=== PATIENT | male | born 1930 | race Hispanic/Latino ===

== ENCOUNTER 2017-05-06 13:11 | Emergency (ER) | payer MEDICARE, OTHER ==
[2017-05-06 13:58] LABS: Basophils % (Auto) 1.4 % (0.0-1.8); Eosinophils % (Auto) 0.5 % (0.0-4.3); Hemoglobin 14.2 gm/dl (11.8-15.2); Mean Corpuscular HGB Conc 33 % (32-34); Mean Corpuscular Hemoglobin 32 pg (28-32); Mean Corpuscular Volume 98 fl (84-94); Platelet Count 249 K/mm3 (140-440); Red Blood Count 4.39 M/mm3 (3.65-5.03); White Blood Count 7.6 K/mm3 (4.5-11.0)
[2017-05-06 14:02] LABS: Anion Gap 21 mmol/L; Blood Urea Nitrogen 18 mg/dL (9-20); Calcium 9.4 mg/dL (8.4-10.2); Carbon Dioxide 18 mmol/L (22-30); Chloride 100.7 mmol/L (98-107); Potassium 4.6 mmol/L (3.6-5.0); Sodium 135 mmol/L (137-145)
[2017-05-06 14:34] LABS: Glucose 96 mg/dL (75-100)
[2017-05-06 15:33] LABS: Albumin 3.8 g/dL (3.9-5); Albumin/Globulin Ratio 1.1 %; Bilirubin,Direct 0.2 mg/dL (0-0.2); Bilirubin,Total 1.2 mg/dL (0.1-1.2); Total Protein 7.2 g/dL (6.3-8.2)
[2017-05-06] MEDS ORDERED: ZOFRAN IV ONE (22:51)
--- NOTE | 2017-05-06 22:55 | Emergency Department Report ---
ED N/V/D HPI - General Chief complaint: Nausea/Vomiting/Diarrhea Stated complaint: VOMITTING/ABD PAIN Time Seen by Provider: 05/06/17 22:41 Source: family Mode of arrival: Ambulatory Limitations: No Limitations - History of Present Illness Initial comments: 86-year-old male with past medical history hypertension, previous cholecystectomy, and kidney stones presents to the hospital complains of persistent nausea for 24 hours. Patient has had nausea times one month and also has experienced similar symptoms over the past year. Last year patient had a breathalyzer ulcer test and other workup that was unremarkable. Patient has not had anything to eat since yesterday morning to nausea. One episode of vomiting in the waiting room while waiting to be evaluated. Last bowel movement was 2 days ago. Patient varies between constipation and diarrhea chronically. No reports of fever here patient denies headache, chest pain, or abdominal pain. - Related Data Home Medications Medication Instructions Recorded Confirmed Last Taken Aspirin [Aspirin BABY CHEW TAB] 81 mg PO QDAY 02/21/16 05/06/17 05/05/17 LORazepam [Ativan] 2 mg PO QHS 02/21/16 05/06/17 05/06/17 Lisinopril [Zestril TAB] 40 mg PO QDAY 02/21/16 05/06/17 05/05/17 Metoprolol [Lopressor] 25 mg PO QDAY 02/21/16 05/06/17 05/05/17 Potassium Chloride [K-Dur] 10 meq PO QDAY 02/21/16 05/06/17 05/05/17 traMADol [Ultram] 50 mg PO Q6HR PRN 02/21/16 05/06/17 05/06/17 Previous Rx's Medication Instructions Recorded Last Taken Type Ondansetron [Zofran Odt] 4 mg PO Q8HR PRN #20 tab.rapdis 05/07/17 Unknown Rx Allergies Allergy/AdvReac Type Severity Reaction Status Date / Time meperidine HCl [From Demerol] Allergy Unknown Verified 02/21/16 11:29 Sulfa (Sulfonamide AdvReac Nausea Verified 02/21/16 11:29 Antibiotics) DEMER AdvReac Severe Unknown Uncoded 09/21/15 12:47 DEMEROL AdvReac Unknown Uncoded 09/21/15 12:47 ED Review of Systems ROS: Stated complaint: VOMITTING/ABD PAIN Other details as noted in HPI Comment: All other systems reviewed and negative Other: Constitutional: No fevers chills. +10 pound weight loss over 6 months. Eyes: No eye pain visual changes ENT: No ear pain or throat pain Neck: Denies pain Respiratory: Denies cough wheezing shortness of breath Cardiovascular: Denies chest pain, palpitations, syncope GI: Denies abdominal pain : Denies dysuria Musculoskeletal: Chronic intermittent left shoulder pain Skin: Denies rash, lesions, erythema Neurologic: Denies headache, numbness, weakness Psychiatric: Denies suicidal ideation, hallucinations ED Past Medical Hx - Past Medical History Hx Hypertension: Yes Hx Kidney Stones: Yes - Surgical History Hx Cholecystectomy: Yes Additional Surgical History: KIDNEY STONE SURGERY - Social History Smoking Status: Never Smoker Substance Use Type: None - Medications Home Medications: Home Medications Medication Instructions Recorded Confirmed Last Taken Type Aspirin [Aspirin BABY CHEW TAB] 81 mg PO QDAY 02/21/16 05/06/17 05/05/17 History LORazepam [Ativan] 2 mg PO QHS 02/21/16 05/06/17 05/06/17 History Lisinopril [Zestril TAB] 40 mg PO QDAY 02/21/16 05/06/17 05/05/17 History Metoprolol [Lopressor] 25 mg PO QDAY 02/21/16 05/06/17 05/05/17 History Potassium Chloride [K-Dur] 10 meq PO QDAY 02/21/16 05/06/17 05/05/17 History traMADol [Ultram] 50 mg PO Q6HR PRN 02/21/16 05/06/17 05/06/17 History Ondansetron [Zofran Odt] 4 mg PO Q8HR PRN #20 tab.rapdis 05/07/17 Unknown Rx ED Physical Exam - General Limitations: No Limitations - Other Other exam information: General: No limitations, patient is alert in no acute distress Head exam: Atraumatic, normocephalic Eyes exam: Normal appearance ENT: Moist mucous membrane Neck exam: Normal inspection, full range of motion Respiratory exam: Clear to auscultation bilateral, no wheezes, rales, crackles Cardiovascular: Normal rate and rhythm, normal heart sounds Abdomen: Soft, nondistended, and nontender, with normal bowel sounds, no rebound, or guarding Extremity: Full range of motion normal inspection no deformity, no left shoulder tenderness at this time, full range of motion Back: Normal Inspection, full range of motion, no tenderness Neurologic: Alert, cranial nerves intact, no motor or sensory deficit Psychiatric: normal affect, normal mood Skin: Warm, dry, intact ED Course Vital Signs 05/06/17 05/06/17 13:17 22:38 Temperature 97.7 F 97.7 F Pulse Rate 74 81 Respiratory 20 22 Rate Blood Pressure 140/82 Blood Pressure 149/86 [Right] O2 Sat by Pulse 100 100 Oximetry - Reevaluation(s) Reevaluation #1: 05/07/17 04:26 Patient treated with Zofran and and IV fluids initiated. After CT results did not show any acute abnormality was offered food in the ED but states he rather eat at home. Patient remains pain-free and no vomiting ED Medical Decision Making - Lab Data Result diagrams: 05/06/17 13:34 05/06/17 13:27 Lab Results 05/06/17 05/06/17 05/06/17 Range/Units 13:27 13:27 13:34 WBC 7.6 (4.5-11.0) K/mm3 RBC 4.39 (3.65-5.03) M/mm3 Hgb 14.2 (11.8-15.2) gm/dl Hct 43.0 (35.5-45.6) % MCV 98 H (84-94) fl MCH 32 (28-32) pg MCHC 33 (32-34) % RDW 13.0 L (13.2-15.2) % Plt Count 249 (140-440) K/mm3 Lymph % (Auto) 21.3 (13.4-35.0) % [place] % (Auto) 9.3 H (0.0-7.3) % Eos % (Auto) 0.5 (0.0-4.3) % Baso % (Auto) 1.4 (0.0-1.8) % Lymph # 1.6 (1.2-5.4) K/mm3 [place] # 0.7 (0.0-0.8) K/mm3 Eos # 0.0 (0.0-0.4) K/mm3 Baso # 0.1 (0.0-0.1) K/mm3 Seg Neutrophils % 67.5 (40.0-70.0) % Seg Neutrophils # 5.2 (1.8-7.7) K/mm3 Sodium 135 L (137-145) mmol/L Potassium 4.6 (3.6-5.0) mmol/L Chloride 100.7 (98-107) mmol/L Carbon Dioxide 18 L (22-30) mmol/L Anion Gap 21 mmol/L BUN 18 (9-20) mg/dL Creatinine 0.8 (0.8-1.5) mg/dL Estimated GFR > 60 ml/min BUN/Creatinine Ratio 22.50 % Glucose 96 (75-100) mg/dL Calcium 9.4 (8.4-10.2) mg/dL Total Bilirubin 1.20 (0.1-1.2) mg/dL Direct Bilirubin 0.2 (0-0.2) mg/dL Indirect Bilirubin 1.0 mg/dL AST 28 (5-40) units/L ALT 13 (7-56) units/L Alkaline Phosphatase 82 (35-129) units/L Total Protein 7.2 (6.3-8.2) g/dL Albumin 3.8 L (3.9-5) g/dL Albumin/Globulin Ratio 1.1 % Lipase 46 (13-60) units/L Urine Color (Yellow) Urine Turbidity (Clear) Urine pH (5.0-7.0) Ur Specific [place] (1.003-1.030) Urine Protein (Negative) mg/dL Urine Glucose (UA) (Negative) mg/dL Urine Ketones (Negative) mg/dL Urine Blood (Negative) Urine Nitrite (Negative) Urine Bilirubin (Negative) Urine Urobilinogen (<2.0) mg/dL Ur Leukocyte Esterase (Negative) Urine WBC (Auto) (0.0-6.0) /HPF Urine RBC (Auto) (0.0-6.0) /HPF U Epithel Cells (Auto) (0-13.0) /HPF Urine Mucus /HPF 05/06/17 Range/Units 23:10 WBC (4.5-11.0) K/mm3 RBC (3.65-5.03) M/mm3 Hgb (11.8-15.2) gm/dl Hct (35.5-45.6) % MCV (84-94) fl MCH (28-32) pg MCHC (32-34) % RDW (13.2-15.2) % Plt Count (140-440) K/mm3 Lymph % (Auto) (13.4-35.0) % [place] % (Auto) (0.0-7.3) % Eos % (Auto) (0.0-4.3) % Baso % (Auto) (0.0-1.8) % Lymph # (1.2-5.4) K/mm3 [place] # (0.0-0.8) K/mm3 Eos # (0.0-0.4) K/mm3 Baso # (0.0-0.1) K/mm3 Seg Neutrophils % (40.0-70.0) % Seg Neutrophils # (1.8-7.7) K/mm3 Sodium (137-145) mmol/L Potassium (3.6-5.0) mmol/L Chloride (98-107) mmol/L Carbon Dioxide (22-30) mmol/L Anion Gap mmol/L BUN (9-20) mg/dL Creatinine (0.8-1.5) mg/dL Estimated GFR ml/min BUN/Creatinine Ratio % Glucose (75-100) mg/dL Calcium (8.4-10.2) mg/dL Total Bilirubin (0.1-1.2) mg/dL Direct Bilirubin (0-0.2) mg/dL Indirect Bilirubin mg/dL AST (5-40) units/L ALT (7-56) units/L Alkaline Phosphatase (35-129) units/L Total Protein (6.3-8.2) g/dL Albumin (3.9-5) g/dL Albumin/Globulin Ratio % Lipase (13-60) units/L Urine Color Yellow (Yellow) Urine Turbidity Clear (Clear) Urine pH 5.0 (5.0-7.0) Ur Specific [place] 1.019 (1.003-1.030) Urine Protein 100 mg/dl (Negative) mg/dL Urine Glucose (UA) Neg (Negative) mg/dL Urine Ketones Tr (Negative) mg/dL Urine Blood Mod (Negative) Urine Nitrite Neg (Negative) Urine Bilirubin Neg (Negative) Urine Urobilinogen < 2.0 (<2.0) mg/dL Ur Leukocyte Esterase Neg (Negative) Urine WBC (Auto) 1.0 (0.0-6.0) /HPF Urine RBC (Auto) 4.0 (0.0-6.0) /HPF U Epithel Cells (Auto) < 1.0 (0-13.0) /HPF Urine Mucus 1+ /HPF - Radiology Data Radiology results: report reviewed TM and pelvis with IV contrast: No acute abnormality. Diverticulosis no inflammation. 6 mm nonobstructive right renal calculus. Stable mild atrophy of the kidneys and multiple renal cysts. No hydronephrosis - Medical Decision Making Patient in no acute findings on lab, urine, or CT. Symptoms appear to be chronic and intermittent. Daughter also states the patient stopped drinking ensure several months ago because he got tired of it and thought it was making him urinate too much. Patient be discharged on Zofran for nausea and encouraged to follow up with primary care doctor. I also encouraged to supplement diet with boost or ensure and continue by mouth hydration - Differential Diagnosis dehydration, decreased appetite, infection Critical Care Time: No Critical care attestation.: If time is entered above; I have spent that time in minutes in the direct care of this critically ill patient, excluding procedure time. ED Disposition Clinical Impression: Nausea, Poor appetite Disposition: DC-01 TO HOME OR SELFCARE Is pt being admited?: No Does the pt Need Aspirin: No Condition: Stable Instructions: Acute Nausea and Vomiting (ED) Additional Instructions: Take the Zofran as needed for nausea. Continue to encourage fluid and food intake. Continue to supplement with Boost or Ensure as needed. Follow-up with your doctor for further treatment. Prescriptions: Ondansetron [Zofran Odt] 4 mg PO Q8HR PRN #20 tab.rapdis PRN Reason: Nausea Referrals: KATHIA LOPEZ MD [Primary Care Provider] - 3-5 Days Time of Disposition: 04:26
[2017-05-07] MEDS ORDERED: NACL ONE (00:01)
[2017-05-07 00:33] LABS: Bilirubin,Urine NEG (Negative); Blood,Urine MOD (Negative); Ketones,Urine TR mg/dL (Negative); Leukocyte Esterase,Urine NEG (Negative); Mucus,Urine 1+ /HPF; Nitrite,Urine NEG (Negative); Urobilinogen,Urine < 2.0 mg/dL (<2.0)
[2017-05-07] MEDS ORDERED: NACL 0.9% 1000 ML 1,000 ML ONE (00:56)
[2017-05-07] MEDS ORDERED: NACL 0.9% 500 ML 500 ML IV SCH (01:00)
--- NOTE | 2017-05-07 03:41 | Cat Scan Report ---
FINAL REPORT EXAM: CT ABDOMEN PELVIS W CON HISTORY: persitant nausea, poor po intake, weight loss COMPARISON: CT of the abdomen pelvis September 2015. Images are available for review. The report is not available. TECHNIQUE: Contiguous axial images were obtained. Additional sagittal and coronal reformatted images were obtained. Administration of IV contrast given per institution protocol. Images submitted for interpretation. 100 cc Omnipaque [id number]. FINDINGS: Mild linear scarring or atelectasis at the lung bases. Remote right-sided rib fractures. Mild cardiac enlargement. Gallbladder surgically absent. Common bile duct measures 10 millimeters at the nick hepatis and tapers to 5 millimeters at the pancreatic head. Dilatation the common bile duct likely relates to patient's age and post cholecystectomy state. Mild diffuse fatty infiltration of the liver. Spleen and pancreas are grossly unremarkable. Mild nodular thickening of adrenal glands. Nonobstructive calculus mid right renal pelvis measuring 6 x 6 millimeters. Multiple bilateral renal cysts. Mild cortical thinning of the bilateral kidneys. No solid renal lesion. No hydronephrosis. Aorta and IVC normal in caliber. Mild to moderate calcified plaque along the aorta and iliac arteries. No dissection or rupture. Urinary bladder is grossly unremarkable. Mild enlargement of prostate gland prostate gland measures 4.7 x 3.4 centimeters in axial dimension. No free fluid or lymphadenopathy in the pelvic cavity. Mild to moderate diverticulosis of the sigmoid colon. No diverticulitis large and small bowel loops normal in caliber. No focal inflammatory changes of the bowel. The appendix is not visualized. Stable moderate superior plate compression deformity L4 level. Bony pelvis is grossly intact. IMPRESSION: No gross focal inflammatory changes of the abdomen and pelvis. Stable mild prominence of the biliary tree which appears relate to patient's age and post cholecystectomy state. No obstructive lesion identified along the course of the common bile duct. Large and small bowel loops normal in caliber. Mild to moderate diverticulosis of left colon. No diverticulitis. Appendix is not visualized. However, there is no pericecal stranding or fluid to suggest acute inflammation. 6 millimeter nonobstructive right renal calculus. Stable mild atrophy of the kidneys with multiple renal cysts. No hydronephrosis.
[2017-05-07 04:35] VITALS: BP 130/80
== END 2017-05-07 04:34 | disposition home or self-care (01) ==
LOC: ED 13:11
DX: R11.2 Nausea with vomiting, unspecified (principal); R63.0 Anorexia; Z88.2 Allergy status to sulfonamides; Z88.8 Allergy status to other drugs, medicaments and biological substances; I10 Essential (primary) hypertension; Z90.49 Acquired absence of other specified parts of digestive tract; Z79.82 Long term (current) use of aspirin
CPT/HCPCS: 36415; 74177; 80048; 80074; 81001; 83690; 85025; 96374; 99284; J2405; J7030; Q9967